=== PATIENT | female | born 1960 | race Caucasian/White ===

== ENCOUNTER 2023-08-22 16:12 | Emergency (ER) | payer OTHER ==
--- OUTSIDE RECORDS SUMMARY | 2023-08-22 16:17 | XMS REPORT | Continuity of Care Document ---
:1960 Author Organization [facility] t Address [address] [place] [address] [place] [id number] Care Team Providers Name Role Phone Pcp, Patient Does Not Have A Primary Care Physician [phone] Kwadwo Watkins Attending Clinician Unavailable Pcp, Patient Does Not Have A Attending Clinician [phone] Luigi Watkins Attending Clinician Unavailable ASHISH SHAFFER Attending Clinician Unavailable CLARISA KERN Attending Clinician Unavailable CLARISA KERN Attending Clinician [phone] ALVARO BRITO M.D. Attending Clinician Unavailable Luigi Watkins Admitting Clinician Unavailable ASHISH SHAFFER Admitting Clinician Unavailable Payers Payer Name Policy Type Policy Number Effective Date Expiration Date Pradeep Seymour [id number] 2021 Common HEALTHCARE 00:00:00 [place] [address] [id number] Common [employer] [facility] Problems Condition Condition Condition Status Onset Resolution Last Treating Co mments Source Name Details Category Date Date Treatment Clinician Date History of History of Problem Resolve [facility] Asthma Asthma d Physici ans History of History of Problem Resolve UT Mass Mass d Physici ans History of History of Problem Resolve [facility] Thyroid Thyroid d Physici disease disease ans Wrist Wrist Problem Active [facility] pain, pain, Physici chronic, chronic, ans right right Chronic Chronic Problem Active [facility] pain of pain of Physici left knee left knee ans Right Right Problem Active [facility] wrist wrist Physici tendonitis tendonitis an s History of History of Problem Resolve UT blood blood d Physici clots clots ans Abnormal Other Problem Common mammogram abnormal Spiri t and - CHI inconclusi [facility] findings [facility] diagnostic imaging of breast [id number] Primary Problem Comm on osteoarthr Spirit itis of [facility] right knee [facility] [id number] Primary Problem Comm on osteoarthr Spirit itis of CHI left knee [facility] Hysterecto Absence of Problem C ommon my both Spirit cervix and - CHI uterus, [facility] [id number] Mixed Problem Common hyperlipid Spirit emia [facility] [id number] Hypothyroi Problem Co mmon dism Spirit (acquired) [facility] [id number] Postsurgic Problem Co mmon al Spirit menopause [facility] [id number] Thyroid Problem Commo n nodule [facility] No known No known Disease Unive rs active active ity of problems problems [facility] Allergies, Adverse Reactions, Alerts Allergy Allergy Status Severity Reaction(s) Onset Inactive Treating Comm ents Source Name Type Date Date Clinician Codeine Propensi Active Unknown - Univ ers ty to See comments 07-11 ity of adverse 00:00: [place] reaction 00 Medical s Branch CITRUS DRUG Active Unknown-Cmnt Univ ers FLAVOR INGREDI 07-11 ity of 00:: Medical Branch CODEINE DRUG Active Unknown-Cmnt Uni vers INGREDI 07-11 ity of 00:00: Medical Branch [place] Propensi Active Unknown - Unive rs Flavor ty to See comments 07-11 ity of adverse 00:00: [place] reaction [facility] No Known DA Active U [facility] Contrast 06-27 [place] Allergie 00:00: d s 00 [facility] No Known DA Active U 2006- [facility] Other - [place] Allergie 00:00: d s 00 [facility] CITRUS DA Active U GI UPSET 2006- [facility] FRUITS 06-27 [place] 00:00: d 00 [facility] CODEINE DA Active U SEVERE [facility] HEADACHE, 06-27 [place] IRRITABILITY 00:00: d 00 [facility] codeine DA Active U 2006- [facility] 3-06 [place] 00:00: d 00 [facility] codeine codeine Active Unknown [facility] - [facility] Other Allergy Active UT to Physici substanc ans e (finding ) Family History Family Member Diagnosis Comments Start Date Stop Date Source Father Family history of Diabetes [facility] Father Family history of Heart [facility] Physicians disease Father Family history of High [facility] blood pressure Social History Social Habit Start Date Stop Date Quantity Comments Source Sexual orientation Univer [facility] Medical Branch History of Tobacco Common [facility] - [facility] Use [facility] Sex Assigned At Com mon Spirit - CHI [facility] Exposure to 2022-07-01 2022-07-11 Not sure [facility] SARS-CoV-2 (event) 00:00:00 15:06:00 Medica l Branch Smoking Status Start Date Stop Date Source Tobacco smoking consumption Univ [facility] unknown Branch Never Smoker [facility] Medications Ordered Filled Start Stop Current Ordering Indication Dosage Frequency Signature Comments Components Source Medication Medication Date Date Medication? Clinician (SIG) Name Name Ofloxacin Ofloxacin No 10{drop QD Ofloxacin 0.3 % 0.3 % 06 s_into_ 0.3 % 00:00: affecte 00 d_ear} Ventolin Ventolin No 1{puff_ 6xD Ventolin HFA 108 (90 HFA 108 (90 5- as_need HFA 108 Base) Base) 00:00: ed} (90 Base) MCG/ACT MCG/ACT 00 MCG/ACT Macrobid Macrobid No 1{capsu BID Macrobid 100 MG 100 MG 02-20 le_with 100 MG 00:00: _food} 00 Bupivicaine Bupivicaine 2021-10 No 2.5mg Common [place] 2-13 Spirit 00:00: - [facility] Bupivicaine Bupivicaine 2021-10 No 2.5mg Common [place] 2-13 Spirit 00:00: - CHI 00 [facility] Durolane Durolane 2021-10 No 60mg Commo n 2-13 Spirit 00:00: - CHI 00 [facility] Durolane Durolane 2021-10 No 60mg Commo n 2-13 Spirit 00:00: - CHI 00 [facility] Bupivicaine Bupivicaine 2021-10 No 2.5mg Common [place] 2-13 Spirit 00:00: - CHI 00 [facility] Bupivicaine Bupivicaine 2021-10 No 2.5mg Common [place] 2-13 Spirit 00:00: - CHI 00 [facility] Durolane Durolane 2021-10 No 60mg Commo n 2-13 Spirit 00:00: - CHI 00 [facility] Durolane Durolane 2021-10 No 60mg Commo n 2-13 Spirit 00:00: - CHI 00 [facility] Bupivicaine Bupivicaine 2021-10 No 2.5mg Common [place] 2-13 Spirit 00:00: - CHI 00 [facility] Bupivicaine Bupivicaine 2021-10 No 2.5mg Common [place] 2-13 Spirit 00:00: - CHI 00 [facility] Durolane Durolane 2021-10 No 60mg Commo n 2-13 Spirit 00:00: - CHI 00 [facility] Durolane Durolane 2021-10 No 60mg Commo n 2-13 Spirit 00:00: - CHI 00 [facility] Bupivicaine Bupivicaine 2021-10 No 2.5mg Common [place] 2-13 Spirit 00:00: - CHI 00 [facility] Bupivicaine Bupivicaine 2021-10 No 2.5mg Common [place] 2-13 Spirit 00:00: - CHI 00 [facility] Durolane Durolane 2021-10 No 60mg Commo n 2-13 Spirit 00:00: - CHI 00 [facility] Durolane Durolane 2021-10 No 60mg Commo n 2-13 Spirit 00:00: - CHI 00 [facility] NaCl 0.9% 2021- No 1000mL at 999 Uni vers (NS) bolus 07-11 09-19 mL/hr, ity of infusion 21:00: 22:09 1,000 mL, Jose as 1,000 mL 00 :00 IV Medical Infusion, Branch ONCE, 1 dose, On 07/11/22 at 1600, STALIN nirmatrelvi 2021-0 Yes [id number] 3{tbl} Take 3 Univers r-ritonavir 9-19 tablets by it y of (PAXLOVID, 00:00: mouth in [place] as EUA,) 300 00 the Medical mg (150 mg morning Branch x 2)-100 mg and 3 tablet tablets in the evening. nirmatrelvi 2021-0 Yes [id number] 3{tbl} Take 3 Univers r-ritonavir 9-19 tablets by it y of (PAXLOVID, 00:00: mouth in [place] as EUA,) 300 00 the Medical mg (150 mg morning Branch x 2)-100 mg and 3 tablet tablets in the evening. Bupivicaine Bupivicaine 2021-0 No 5mg Common [place] 8-22 Spirit 00:00: - [facility] Bupivicaine Bupivicaine 2021-0 No 5mg Common [place] 8-22 Spirit 00:00: - [facility] Kenalog Kenalog 2021-0 No 40mg Common (Triamcinol (Triamcinol 8-22 S pirit one) one) 00:00: - CHI [facility] Kenalog Kenalog 2021-0 No 40mg Common (Triamcinol (Triamcinol 8-22 S pirit one) one) 00:00: - [facility] Bupivicaine Bupivicaine 2-0 No 5mg Common [place] 8-22 Spirit 00:00: - [facility] Bupivicaine Bupivicaine 2-0 No 5mg Common [place] 8-22 Spirit 00:00: - [facility] Kenalog Kenalog 2021-0 No 40mg Common (Triamcinol (Triamcinol 8-22 S pirit one) one) 00:00: - CH[facility] Kenalog Kenalog 2-0 No 40mg Common (Triamcinol (Triamcinol 8-22 S pirit one) one) 00:00: - CHI 00 [facility] Bupivicaine Bupivicaine 2-0 No 5mg Common [place] 8-22 Spirit 00:00: - CHI 00 [facility] Bupivicaine Bupivicaine 2-0 No 5mg Common [place] 8-22 Spirit 00:00: - CHI 00 [facility] Kenalog Kenalog 2-0 No 40mg Common (Triamcinol (Triamcinol 8-22 S pirit one) one) 00:00: - CHI 00 [facility] Kenalog Kenalog 2021-0 No 40mg Common (Triamcinol (Triamcinol 8-22 S pirit one) one) 00:00: - CHI 00 [facility] Bupivicaine Bupivicaine 2-0 No 5mg Common [place] 8-22 Spirit 00:00: - CHI 00 [facility] Bupivicaine Bupivicaine 2-0 No 5mg Common [place] 8-22 Spirit 00:00: - CHI 00 [facility] Kenalog Kenalog 2-0 No 40mg Common (Triamcinol (Triamcinol 8-22 S pirit one) one) 00:00: - CHI 00 [facility] Kenalog Kenalog 2-0 No 40mg Common (Triamcinol (Triamcinol 8-22 S pirit one) one) 00:00: - CHI 00 [facility] Bupivicaine Bupivicaine 2-0 No 5mg Common [place] 8-22 Spirit 00:00: - CHI 00 [facility] Bupivicaine Bupivicaine 2-0 No 5mg Common [place] 8-22 Spirit 00:00: - CHI 00 [facility] Kenalog Kenalog 2-0 No 40mg Common (Triamcinol (Triamcinol 8-22 S pirit one) one) 00:00: - CHI 00 [facility] Kenalog Kenalog 2-0 No 40mg Common (Triamcinol (Triamcinol 8-22 S pirit one) one) 00:00: - CHI 00 [facility] Bupivicaine Bupivicaine 2-0 No 5mg Common [place] 8-22 Spirit 00:00: - CHI 00 [facility] Bupivicaine Bupivicaine 2-0 No 5mg Common [place] 8-22 Spirit 00:00: - CHI 00 [facility] Kenalog Kenalog 2-0 No 40mg Common (Triamcinol (Triamcinol 8-22 S pirit one) one) 00:00: - CHI 00 [facility] Kenalog Kenalog 2-0 No 40mg Common (Triamcinol (Triamcinol 8-22 S pirit one) one) 00:00: - CHI 00 [facility] Bupivicaine Bupivicaine 2-0 No 5mg Common [place] 8-22 Spirit 00:00: - CHI 00 [facility] Bupivicaine Bupivicaine 2-0 No 5mg Common [place] 8-22 Spirit 00:00: - CHI 00 [facility] Kenalog Kenalog 2-0 No 40mg Common (Triamcinol (Triamcinol 8-22 S pirit one) one) 00:00: - CHI 00 [facility] Kenalog Kenalog 2-0 No 40mg Common (Triamcinol (Triamcinol 8-22 S pirit one) one) 00:00: - CHI 00 [facility] Bupivicaine Bupivicaine 2-0 No 5mg Common [place] 8-22 Spirit 00:00: - CHI 00 [facility] Bupivicaine Bupivicaine 2-0 No 5mg Common [place] 8-22 Spirit 00:00: - CHI 00 [facility] Kenalog Kenalog 2-0 No 40mg Common (Triamcinol (Triamcinol 8-22 S pirit one) one) 00:00: - CHI 00 [facility] Kenalog Kenalog 2-0 No 40mg Common (Triamcinol (Triamcinol 8-22 S pirit one) one) 00:00: - CHI 00 [facility] Bupivicaine Bupivicaine 2-0 No 5mg Common [place] 8-22 Spirit 00:00: - CHI 00 [facility] Bupivicaine Bupivicaine 2-0 No 5mg Common [place] 8-22 Spirit 00:00: - CHI 00 [facility] Kenalog Kenalog 2-0 No 40mg Common (Triamcinol (Triamcinol 8-22 S pirit one) one) 00:00: - CHI 00 [facility] Kenalog Kenalog 2-0 No 40mg Common (Triamcinol (Triamcinol 8-22 S pirit one) one) 00:00: - CHI 00 [facility] Bupivicaine Bupivicaine 2-0 No 5mg Common [place] 8-22 Spirit 00:00: - CHI 00 [facility] Bupivicaine Bupivicaine 2-0 No 5mg Common [place] 8-22 Spirit 00:00: - CHI 00 [facility] Kenalog Kenalog 2-0 No 40mg Common (Triamcinol (Triamcinol 8-22 S pirit one) one) 00:00: - CHI 00 [facility] Kenalog Kenalog 2-0 No 40mg Common (Triamcinol (Triamcinol 8-22 S pirit one) one) 00:00: - CHI 00 [facility] Bupivicaine Bupivicaine 2-0 No 5mg Common [place] 8-22 Spirit 00:00: - CHI 00 [facility] Bupivicaine Bupivicaine 2-0 No 5mg Common [place] 8-22 Spirit 00:00: - CHI 00 [facility] Kenalog Kenalog 2-0 No 40mg Common (Triamcinol (Triamcinol 8-22 S pirit one) one) 00:00: - CHI 00 [facility] Kenalog Kenalog 2-0 No 40mg Common (Triamcinol (Triamcinol 8-22 S pirit one) one) 00:00: - CHI 00 [facility] Bupivicaine Bupivicaine 2-0 No 5mg Common [place] 8-22 Spirit 00:00: - CHI 00 [facility] Bupivicaine Bupivicaine 2-0 No 5mg Common [place] 8-22 Spirit 00:00: - CHI 00 [facility] Kenalog Kenalog 2021-0 No 40mg Common (Triamcinol (Triamcinol 8-22 S pirit one) one) 00:00: - CHI 00 [facility] Kenalog Kenalog 2021-0 No 40mg Common (Triamcinol (Triamcinol 8-22 S pirit one) one) 00:00: - CHI 00 [facility] Bupivicaine Bupivicaine 2-0 No 5mg Common [place] 8-22 Spirit 00:00: - CHI 00 [facility] Bupivicaine Bupivicaine 2-0 No 5mg Common [place] 8-22 Spirit 00:00: - CHI 00 [facility] Kenalog Kenalog 2021-0 No 40mg Common (Triamcinol (Triamcinol 8-22 S pirit one) one) 00:00: - CHI 00 [facility] Kenalog Kenalog 2021-0 No 40mg Common (Triamcinol (Triamcinol 8-22 S pirit one) one) 00:00: - CHI 00 [facility] Liothyronin Liothyronin 2021-0 No 1{table QD Liothyroni e Sodium 5 e Sodium 5 2-16 t_on_an ne Sodium MCG MCG 00:00: _empty_ 5 MCG 00 stomach } Estradiol Estradiol 2021-0 No 1{table Estradiol 0.5 MG 0.5 MG 2-16 t} 0.5 MG 00:00: 00 Tirosint Tirosint 2021-0 No QD Tirosint 175 MCG 175 MCG 2-16 175 MCG 00:00: 00 Liothyronin Liothyronin 2021-0 No 1{table QD Liothyroni e Sodium 5 e Sodium 5 2-16 t_on_an ne Sodium MCG MCG 00:00: _empty_ 5 MCG 00 stomach } Estradiol Estradiol 2021-0 No 1{table Estradiol 0.5 MG 0.5 MG 2-16 t} 0.5 MG 00:00: 00 Tirosint Tirosint 2021-0 No QD Tirosint 175 MCG 175 MCG 2-16 175 MCG 00:00: 00 Liothyronin Liothyronin 2021-0 No 1{table QD Liothyroni e Sodium 5 e Sodium 5 2-16 t_on_an ne Sodium MCG MCG 00:00: _empty_ 5 MCG 00 stomach } Estradiol Estradiol 2021-0 No 1{table Estradiol 0.5 MG 0.5 MG 2-16 t} 0.5 MG 00:00: 00 Tirosint Tirosint 2021-0 No QD Tirosint 175 MCG 175 MCG 2-16 175 MCG 00:00: 00 Estradiol Estradiol 2021-0 No 1{table Estradiol 0.5 MG 0.5 MG 2-16 t} 0.5 MG 00:00: 00 Liothyronin Liothyronin 2021-0 No 1{table QD Liothyroni e Sodium 5 e Sodium 5 2-16 t_on_an ne Sodium MCG MCG 00:00: _empty_ 5 MCG 00 stomach } Tirosint Tirosint No QD Tirosint 175 MCG 175 MCG 2-16 175 MCG 00:00: 00 Estradiol Estradiol 2021-0 No 1{table Estradiol 0.5 MG 0.5 MG 2-16 t} 0.5 MG 00:00: 00 Liothyronin Liothyronin 2021-0 No 1{table QD Liothyroni e Sodium 5 e Sodium 5 2-16 t_on_an ne Sodium MCG MCG 00:00: _empty_ 5 MCG 00 stomach } Tirosint Tirosint 0 No QD Tirosint 175 MCG 175 MCG 2-16 175 MCG 00:00: 00 Estradiol Estradiol 2021-0 No 1{table Estradiol 0.5 MG 0.5 MG 2-16 t} 0.5 MG 00:00: 00 Liothyronin Liothyronin 2021-0 No 1{table QD Liothyroni e Sodium 5 e Sodium 5 2-16 t_on_an ne Sodium MCG MCG 00:00: _empty_ 5 MCG 00 stomach } Tirosint Tirosint 2021-0 No QD Tirosint 175 MCG 175 MCG 2-16 175 MCG 00:00: 00 Liothyronin Liothyronin 2021-0 No 1{table QD Liothyroni e Sodium 5 e Sodium 5 2-16 t_on_an ne Sodium MCG MCG 00:00: _empty_ 5 MCG 00 stomach } Tirosint Tirosint 2021-0 No QD Tirosint 175 MCG 175 MCG 2-16 175 MCG 00:00: 00 Estradiol Estradiol No 1{table Estradiol 0.5 MG 0.5 MG 2-16 t} 0.5 MG 00:00: 00 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 No 1{table QD 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 60 MG 60 MG 1-30 t_on_an 60 MG 00:00: _empty_ 00 stomach } Estradiol Estradiol No Estradiol 0.1 MG/24HR 0.1 MG/24HR 0.1 MG/24HR Levothyroxi Levothyroxi No Levothyrox ne Sodium ne Sodium ine Sodium 175 MCG 175 MCG 175 MCG Albuterol Albuterol No Albuterol Sulfate HFA Sulfate HFA Sulfate 108 (90 108 (90 HFA 108 Base) Base) (90 Base) MCG/ACT MCG/ACT MCG/ACT Estradiol Estradiol No Estradiol 0.1 MG/24HR 0.1 MG/24HR 0.1 MG/24HR Levothyroxi Levothyroxi No Levothyrox ne Sodium ne Sodium ine Sodium 175 MCG 175 MCG 175 MCG Albuterol Albuterol No Albuterol Sulfate HFA Sulfate HFA Sulfate 108 (90 108 (90 HFA 108 Base) Base) (90 Base) MCG/ACT MCG/ACT MCG/ACT Estradiol Estradiol No Estradiol 0.1 MG/24HR 0.1 MG/24HR 0.1 MG/24HR Levothyroxi Levothyroxi No Levothyrox ne Sodium ne Sodium ine Sodium 175 MCG 175 MCG 175 MCG Albuterol Albuterol No Albuterol Sulfate HFA Sulfate HFA Sulfate 108 (90 108 (90 HFA 108 Base) Base) (90 Base) MCG/ACT MCG/ACT MCG/ACT Levothyroxi Levothyroxi No Levothyrox ne Sodium ne Sodium ine Sodium 175 MCG 175 MCG 175 MCG Estradiol Estradiol No Estradiol 0.1 MG/24HR 0.1 MG/24HR 0.1 MG/24HR Albuterol Albuterol No Albuterol Sulfate HFA Sulfate HFA Sulfate 108 (90 108 (90 HFA 108 Base) Base) (90 Base) MCG/ACT MCG/ACT MCG/ACT Levothyroxi Levothyroxi No Levothyrox ne Sodium ne Sodium ine Sodium 175 MCG 175 MCG 175 MCG Estradiol Estradiol No Estradiol 0.1 MG/24HR 0.1 MG/24HR 0.1 MG/24HR Albuterol Albuterol No Albuterol Sulfate HFA Sulfate HFA Sulfate 108 (90 108 (90 HFA 108 Base) Base) (90 Base) MCG/ACT MCG/ACT MCG/ACT Levothyroxi Levothyroxi No Levothyrox ne Sodium ne Sodium ine Sodium 175 MCG 175 MCG 175 MCG Estradiol Estradiol No Estradiol 0.1 MG/24HR 0.1 MG/24HR 0.1 MG/24HR Albuterol Albuterol No Albuterol Sulfate HFA Sulfate HFA Sulfate 108 (90 108 (90 HFA 108 Base) Base) (90 Base) MCG/ACT MCG/ACT MCG/ACT Estradiol Estradiol No Estradiol 0.1 MG/24HR 0.1 MG/24HR 0.1 MG/24HR Estradiol Estradiol No 1{table Estradiol 0.5 MG 0.5 MG t} 0.5 MG Liothyronin Liothyronin No 1{table QD Liothyroni e Sodium 5 e Sodium 5 t_on_an ne Sodium MCG MCG _empty_ 5 MCG stomach } Liothyronin Liothyronin No 1{table QD Liothyroni e Sodium 5 e Sodium 5 t_on_an ne Sodium MCG MCG _empty_ 5 MCG stomach } Levothyroxi Levothyroxi No QD Levothyrox ne Sodium ne Sodium ine Sodium 125 MCG 125 MCG 125 MCG Albuterol Albuterol No Albuterol Sulfate HFA Sulfate HFA Sulfate 108 (90 108 (90 HFA 108 Base) Base) (90 Base) MCG/ACT MCG/ACT MCG/ACT Tirosint Tirosint No QD Tirosint 175 MCG 175 MCG 175 MCG Levothyroxi Levothyroxi No QD Levothyrox ne Sodium ne Sodium ine Sodium 100 MCG 100 MCG 100 MCG Estradiol Estradiol No 1{table Estradiol 0.5 MG 0.5 MG t} 0.5 MG Albuterol Albuterol No Albuterol Sulfate HFA Sulfate HFA Sulfate 108 (90 108 (90 HFA 108 Base) Base) (90 Base) MCG/ACT MCG/ACT MCG/ACT Liothyronin Liothyronin No 1{table QD Liothyroni e Sodium 5 e Sodium 5 t_on_an ne Sodium MCG MCG _empty_ 5 MCG stomach } Albuterol Albuterol No Albuterol Sulfate HFA Sulfate HFA Sulfate 108 (90 108 (90 HFA 108 Base) Base) (90 Base) MCG/ACT MCG/ACT MCG/ACT Levothyroxi Levothyroxi No QD Levothyrox ne Sodium ne Sodium ine Sodium 100 MCG 100 MCG 100 MCG Estradiol Estradiol No Estradiol 0.5 MG 0.5 MG 0.5 MG Liothyronin Liothyronin No 1{table QD Liothyroni e Sodium 5 e Sodium 5 t_on_an ne Sodium MCG MCG _empty_ 5 MCG stomach } Levothyroxi Levothyroxi No QD Levothyrox ne Sodium ne Sodium ine Sodium 100 MCG 100 MCG 100 MCG Albuterol Albuterol No Albuterol Sulfate HFA Sulfate HFA Sulfate 108 (90 108 (90 HFA 108 Base) Base) (90 Base) MCG/ACT MCG/ACT MCG/ACT Liothyronin Liothyronin No 1{table QD Liothyroni e Sodium 5 e Sodium 5 t_on_an ne Sodium MCG MCG _empty_ 5 MCG stomach } Estradiol Estradiol No Estradiol 0.5 MG 0.5 MG 0.5 MG Levothyroxi Levothyroxi No QD Levothyrox ne Sodium ne Sodium ine Sodium 100 MCG 100 MCG 100 MCG Albuterol Albuterol No Albuterol Sulfate HFA Sulfate HFA Sulfate 108 (90 108 (90 HFA 108 Base) Base) (90 Base) MCG/ACT MCG/ACT MCG/ACT Liothyronin Liothyronin No 1{table QD Liothyroni e Sodium 5 e Sodium 5 t_on_an ne Sodium MCG MCG _empty_ 5 MCG stomach } Estradiol Estradiol No Estradiol 0.5 MG 0.5 MG 0.5 MG Levothyroxi Levothyroxi No QD Levothyrox ne Sodium ne Sodium ine Sodium 100 MCG 100 MCG 100 MCG Albuterol Albuterol No Albuterol Sulfate HFA Sulfate HFA Sulfate 108 (90 108 (90 HFA 108 Base) Base) (90 Base) MCG/ACT MCG/ACT MCG/ACT Liothyronin Liothyronin No 1{table QD Liothyroni e Sodium 5 e Sodium 5 t_on_an ne Sodium MCG MCG _empty_ 5 MCG stomach } Estradiol Estradiol No Estradiol 0.5 MG 0.5 MG 0.5 MG Estradiol Estradiol No 1{table Estradiol 0.5 MG 0.5 MG t} 0.5 MG Estradiol Estradiol No Estradiol 0.5 MG 0.5 MG 0.5 MG Albuterol Albuterol No Albuterol Sulfate HFA Sulfate HFA Sulfate 108 (90 108 (90 HFA 108 Base) Base) (90 Base) MCG/ACT MCG/ACT MCG/ACT Levothyroxi Levothyroxi No QD Levothyrox ne Sodium ne Sodium ine Sodium 100 MCG 100 MCG 100 MCG Liothyronin Liothyronin No 1{table QD Liothyroni e Sodium 5 e Sodium 5 t_on_an ne Sodium MCG MCG _empty_ 5 MCG stomach } Albuterol Albuterol No Albuterol Sulfate HFA Sulfate HFA Sulfate 108 (90 108 (90 HFA 108 Base) Base) (90 Base) MCG/ACT MCG/ACT MCG/ACT Estradiol Estradiol No Estradiol 0.5 MG 0.5 MG 0.5 MG Estradiol Estradiol No 1{table Estradiol 0.5 MG 0.5 MG t} 0.5 MG Levothyroxi Levothyroxi No QD Levothyrox ne Sodium ne Sodium ine Sodium 100 MCG 100 MCG 100 MCG Liothyronin Liothyronin No Liothyroni e Sodium 5 e Sodium 5 ne Sodium MCG MCG 5 MCG Estradiol Estradiol No 1{table Estradiol 0.5 MG 0.5 MG t} 0.5 MG Estradiol Estradiol No Estradiol 0.5 MG 0.5 MG 0.5 MG Liothyronin Liothyronin No 1{table QD Liothyroni e Sodium 5 e Sodium 5 t_on_an ne Sodium MCG MCG _empty_ 5 MCG stomach } Levothyroxi Levothyroxi No QD Levothyrox ne Sodium ne Sodium ine Sodium 112 MCG 112 MCG 112 MCG Liothyronin Liothyronin No Liothyroni e Sodium 5 e Sodium 5 ne Sodium MCG MCG 5 MCG Albuterol Albuterol No Albuterol Sulfate HFA Sulfate HFA Sulfate 108 (90 108 (90 HFA 108 Base) Base) (90 Base) MCG/ACT MCG/ACT MCG/ACT Estradiol Estradiol No 1{table Estradiol 0.5 MG 0.5 MG t} 0.5 MG Estradiol Estradiol No Estradiol 0.5 MG 0.5 MG 0.5 MG Liothyronin Liothyronin No 1{table QD Liothyroni e Sodium 5 e Sodium 5 t_on_an ne Sodium MCG MCG _empty_ 5 MCG stomach } Levothyroxi Levothyroxi No QD Levothyrox ne Sodium ne Sodium ine Sodium 112 MCG 112 MCG 112 MCG Liothyronin Liothyronin No Liothyroni e Sodium 5 e Sodium 5 ne Sodium MCG MCG 5 MCG Albuterol Albuterol No Albuterol Sulfate HFA Sulfate HFA Sulfate 108 (90 108 (90 HFA 108 Base) Base) (90 Base) MCG/ACT MCG/ACT MCG/ACT Estradiol Estradiol No 1{table Estradiol 0.5 MG 0.5 MG t} 0.5 MG Estradiol Estradiol No Estradiol 0.5 MG 0.5 MG 0.5 MG Liothyronin Liothyronin No 1{table QD Liothyroni e Sodium 5 e Sodium 5 t_on_an ne Sodium MCG MCG _empty_ 5 MCG stomach } Levothyroxi Levothyroxi No QD Levothyrox ne Sodium ne Sodium ine Sodium 112 MCG 112 MCG 112 MCG Liothyronin Liothyronin No Liothyroni e Sodium 5 e Sodium 5 ne Sodium MCG MCG 5 MCG Albuterol Albuterol No Albuterol Sulfate HFA Sulfate HFA Sulfate 108 (90 108 (90 HFA 108 Base) Base) (90 Base) MCG/ACT MCG/ACT MCG/ACT Estradiol Estradiol No 1{table Estradiol 0.5 MG 0.5 MG t} 0.5 MG Estradiol Estradiol No Estradiol 0.5 MG 0.5 MG 0.5 MG Liothyronin Liothyronin No 1{table QD Liothyroni e Sodium 5 e Sodium 5 t_on_an ne Sodium MCG MCG _empty_ 5 MCG stomach } Levothyroxi Levothyroxi No QD Levothyrox ne Sodium ne Sodium ine Sodium 112 MCG 112 MCG 112 MCG Liothyronin Liothyronin No Liothyroni e Sodium 5 e Sodium 5 ne Sodium MCG MCG 5 MCG Albuterol Albuterol No Albuterol Sulfate HFA Sulfate HFA Sulfate 108 (90 108 (90 HFA 108 Base) Base) (90 Base) MCG/ACT MCG/ACT MCG/ACT Albuterol Albuterol No Albuterol Sulfate HFA Sulfate HFA Sulfate 108 (90 108 (90 HFA 108 Base) Base) (90 Base) MCG/ACT MCG/ACT MCG/ACT Liothyronin Liothyronin No 1{table QD Liothyroni e Sodium 5 e Sodium 5 t_on_an ne Sodium MCG MCG _empty_ 5 MCG stomach } Estradiol Estradiol No 1{table Estradiol 0.5 MG 0.5 MG t} 0.5 MG Liothyronin Liothyronin No Liothyroni e Sodium 5 e Sodium 5 ne Sodium MCG MCG 5 MCG Estradiol Estradiol No Estradiol 0.5 MG 0.5 MG 0.5 MG Levothyroxi Levothyroxi No QD Levothyrox ne Sodium ne Sodium ine Sodium 112 MCG 112 MCG 112 MCG Estradiol Estradiol No 1{table Estradiol 0.5 MG 0.5 MG t} 0.5 MG Albuterol Albuterol No Albuterol Sulfate HFA Sulfate HFA Sulfate 108 (90 108 (90 HFA 108 Base) Base) (90 Base) MCG/ACT MCG/ACT MCG/ACT Liothyronin Liothyronin No Liothyroni e Sodium 5 e Sodium 5 ne Sodium MCG MCG 5 MCG Liothyronin Liothyronin No 1{table QD Liothyroni e Sodium 5 e Sodium 5 t_on_an ne Sodium MCG MCG _empty_ 5 MCG stomach } Levothyroxi Levothyroxi No QD Levothyrox ne Sodium ne Sodium ine Sodium 112 MCG 112 MCG 112 MCG Estradiol Estradiol No Estradiol 0.5 MG 0.5 MG 0.5 MG Estradiol Estradiol No 1{table Estradiol 0.5 MG 0.5 MG t} 0.5 MG Albuterol Albuterol No Albuterol Sulfate HFA Sulfate HFA Sulfate 108 (90 108 (90 HFA 108 Base) Base) (90 Base) MCG/ACT MCG/ACT MCG/ACT Liothyronin Liothyronin No Liothyroni e Sodium 5 e Sodium 5 ne Sodium MCG MCG 5 MCG Liothyronin Liothyronin No 1{table QD Liothyroni e Sodium 5 e Sodium 5 t_on_an ne Sodium MCG MCG _empty_ 5 MCG stomach } Levothyroxi Levothyroxi No QD Levothyrox ne Sodium ne Sodium ine Sodium 112 MCG 112 MCG 112 MCG Estradiol Estradiol No Estradiol 0.5 MG 0.5 MG 0.5 MG Liothyronin Liothyronin No Liothyroni e Sodium 5 e Sodium 5 ne Sodium MCG MCG 5 MCG Estradiol Estradiol No 1{table Estradiol 0.5 MG 0.5 MG t} 0.5 MG Liothyronin Liothyronin No 1{table QD Liothyroni e Sodium 5 e Sodium 5 t_on_an ne Sodium MCG MCG _empty_ 5 MCG stomach } Levothyroxi Levothyroxi No QD Levothyrox ne Sodium ne Sodium ine Sodium 112 MCG 112 MCG 112 MCG Estradiol Estradiol No Estradiol 0.5 MG 0.5 MG 0.5 MG Albuterol Albuterol No Albuterol Sulfate HFA Sulfate HFA Sulfate 108 (90 108 (90 HFA 108 Base) Base) (90 Base) MCG/ACT MCG/ACT MCG/ACT Estradiol Estradiol No Estradiol 0.1 MG/24HR 0.1 MG/24HR 0.1 MG/24HR Albuterol Albuterol No Albuterol Sulfate HFA Sulfate HFA Sulfate 108 (90 108 (90 HFA 108 Base) Base) (90 Base) MCG/ACT MCG/ACT MCG/ACT Albuterol Albuterol No Albuterol Sulfate HFA Sulfate HFA Sulfate 108 (90 108 (90 HFA 108 Base) Base) (90 Base) MCG/ACT MCG/ACT MCG/ACT 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 No 2{table QD 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 60 MG 60 MG t_on_an 60 MG _empty_ stomach } Estradiol Estradiol No Estradiol 0.1 MG/24HR 0.1 MG/24HR 0.1 MG/24HR Albuterol Albuterol No Albuterol Sulfate HFA Sulfate HFA Sulfate 108 (90 108 (90 HFA 108 Base) Base) (90 Base) MCG/ACT MCG/ACT MCG/ACT Thyroid Thyroid Yes [facility] 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 No 1{table QD 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 120 MG 120 MG t_on_an 120 MG _empty_ stomach } Estradiol Estradiol No Estradiol 0.1 MG/24HR 0.1 MG/24HR 0.1 MG/24HR Estradiol Estradiol No Estradiol 0.1 MG/24HR 0.1 MG/24HR 0.1 MG/24HR Albuterol Albuterol No Albuterol Sulfate HFA Sulfate HFA Sulfate 108 (90 108 (90 HFA 108 Base) Base) (90 Base) MCG/ACT MCG/ACT MCG/ACT Vital Signs Vital Name Observation Time Observation Value Comments Source height 2022-11-16 11:30:00 67 [in_i] [facility] weight 2022-11-16 11:30:00 177 [lb_av] [facility] temperature 2022-11-16 11:30:00 97.2 [degF] [facility] bmi 2022-11-16 11:30:00 27.72 kg/m2 Common S pirit [facility] oximetry 2022-11-16 11:30:00 95 % Common S pirit [facility] respiratory rate 2022-11-16 11:30:00 16 /min Comm on [facility] blood pressure 2022-11-16 11:30:00 130 mm[Hg] [facility] - systolic [facility] blood pressure 2022-11-16 11:30:00 80 mm[Hg] [facility] - diastolic [facility] height 2022-10-04 15:30:00 67 [in_i] Common [facility] weight 2022-10-04 15:30:00 178.1 [lb_av] [facility] temperature 2022-10-04 15:30:00 98.0 [degF] Common S pirit [facility] bmi 2022-10-04 15:30:00 27.89 kg/m2 Common S pirit [facility] blood pressure 2022-10-04 15:30:00 124 mm[Hg] [facility] - systolic [facility] blood pressure 2022-10-04 15:30:00 83 mm[Hg] Common [facility] - diastolic [facility] height 2022-08-16 08:20:00 67 [in_i] Common S pirit [facility] weight 2022-08-16 08:20:00 173.9 [lb_av] [facility] temperature 2022-08-16 08:20:00 97.2 [degF] Common S pirit [facility] bmi 2022-08-16 08:20:00 27.23 kg/m2 Common S pirit [facility] oximetry 2022-08-16 08:20:00 98 % Common S pirit [facility] respiratory rate 2022-08-16 08:20:00 18 /min Comm on [facility] blood pressure 2022-08-16 08:20:00 135 mm[Hg] [facility] - systolic [facility] blood pressure 2022-08-16 08:20:00 70 mm[Hg] [facility] - diastolic [facility] height 2022-08-11 10:00:00 67 [in_i] [facility] weight 2022-08-11 10:00:00 175 [lb_av] [facility] temperature 2022-08-11 10:00:00 97.1 [degF] Common [facility] bmi 2022-08-11 10:00:00 27.41 kg/m2 Common [facility] blood pressure 2022-08-11 10:00:00 120 mm[Hg] [facility] - systolic [facility] blood pressure 2022-08-11 10:00:00 76 mm[Hg] [facility] - diastolic [facility] Systolic blood 2022-07-11 22:15:00 129 mm[Hg] [facility] Diastolic blood 2022-07-11 22:15:00 82 mm[Hg] [facility] Heart rate 2022-07-11 22:15:00 77 /min [facility] Respiratory rate 2022-07-11 22:15:00 16 /min [facility] Oxygen saturation in 2022-07-11 22:15:00 96 /min [facility] Arterial blood by [facility] Pulse oximetry Branch Body temperature 2022-07-11 20:07:00 36.89 [facility] height 2022-07-11 20:07:00 170.2 cm [facility] Body weight 2022-07-11 20:07:00 78.019 kg [facility] BMI 2022-07-11 20:07:00 26.94 kg/m2 [facility] height 2022-06-13 15:00:00 67 [in_i] [facility] weight 2022-06-13 15:00:00 176 [lb_av] [facility] temperature 2022-06-13 15:00:00 97.3 [degF] Common S pirit - [facility] bmi 2022-06-13 15:00:00 27.56 kg/m2 Common S pirit - [facility] blood pressure 2022-06-13 15:00:00 137 mm[Hg] [facility] - systolic [facility] blood pressure 2022-06-13 15:00:00 90 mm[Hg] [facility] - diastolic [facility] height 2022-05-10 15:20:00 67 [in_i] Common S pirit [facility] weight 2022-05-10 15:20:00 176 [facility] temperature 2022-05-10 15:20:00 97.6 [degF] [facility] bmi 2022-05-10 15:20:00 27.56 kg/m2 [facility] oximetry 2022-05-10 15:20:00 97 % [facility] pirit [facility] respiratory rate 2022-05-10 15:20:00 16 /min Comm on Spirit - [facility] blood pressure 2022-05-10 15:20:00 129 mm[Hg] Common [facility] - systolic [facility] blood pressure 2022-05-10 15:20:00 77 mm[Hg] [facility] - diastolic [facility] height 2022-03-08 07:40:00 67 [in_i] Common S pirit [facility] weight 2022-03-08 07:40:00 175 [lb_av] Common S pirit [facility] temperature 2022-03-08 07:40:00 98 [degF] Common S pirit [facility] bmi 2022-03-08 07:40:00 27.41 kg/m2 [facility] S pirit [facility] blood pressure 2021-12-08 09:50:00 132 mm[Hg] [facility] - systolic [facility] blood pressure 2021-12-08 09:50:00 73 mm[Hg] [facility] - diastolic [facility] height 2021-12-08 09:50:00 67 [in_i] Common S pirit [facility] weight 2021-12-08 09:50:00 174.7 [lb_av] Common [facility] temperature 2021-12-08 09:50:00 97.9 [degF] Common S pirit - [facility] bmi 2021-12-08 09:50:00 27.36 kg/m2 Common S pirit - [facility] oximetry 2021-12-08 09:50:00 98 % [facility] respiratory rate 2021-12-08 09:50:00 18 /min Comm on [facility] height 2021-11-03 10:30:00 67 [in_i] Common [facility] weight 2021-11-03 10:30:00 173.5 [lb_av] [facility] temperature 2021-11-03 10:30:00 97.9 [degF] [facility] bmi 2021-11-03 10:30:00 27.17 kg/m2 Common S pirit [facility] oximetry 2021-11-03 10:30:00 97 % Common S [facility] respiratory rate 2021-11-03 10:30:00 16 /min Comm on [facility] blood pressure 2021-11-03 10:30:00 133 mm[Hg] Common [facility] - systolic [facility] blood pressure 2021-11-03 10:30:00 72 mm[Hg] Common [facility] - diastolic [facility] height 2021-09-21 11:00:00 67 [in_i] Common S [facility] weight 2021-09-21 11:00:00 170.3 [lb_av] [facility] temperature 2021-09-21 11:00:00 98.2 [degF] Common S p[facility] bmi 2021-09-21 11:00:00 26.67 kg/m2 Common S pirit - [facility] oximetry 2021-09-21 11:00:00 97 % Common S pirit - [facility] respiratory rate 2021-09-21 11:00:00 16 /min Comm on Spirit - [facility] blood pressure 2021-09-21 11:00:00 137 mm[Hg] [facility] - systolic [facility] blood pressure 2021-09-21 11:00:00 75 mm[Hg] [facility] - diastolic [facility] Procedures Procedure Date / Time Performing Clinician Source Performed EKG-12 LEAD 2022-07-11 22:23:29 Ashish Shaffer [facility] XR CHEST 1 VW 2022-07-11 20:53:11 [facility] TROPONIN I 2022-07-11 20:22:00 [facility] COMP. METABOLIC PANEL 2022-07-11 20:22:[address] [facility] ([id number]) Medical Branch CBC WITH DIFF 2022-07-11 20:22:00 Ashish Shaffer [facility] PROTHROMBIN TIME / INR 2022-07-11 20:22:00 Ashish Shaffer [facility] D-DIMER 2022-07-11 20:22:00 Ashish Shaffer [facility] ACTIVATED PARTIAL 2022-07-11 20:22:00 Edmund doug [facility] THRFormerly [facility] N-TERMINAL PRO-BNP 2022-07-11 20:22:00 Ashish Shaffer [facility] COVID-19 (ID NOW RAPID 2022-07-11 20:22:00 Ashish Shaffer [facility] TESTING) Medical Branch CONSENT/REFUSAL FOR 2022-07-11 20:02:09 [facility] DI[facility] TREAT[facility] Infectious agent 2020-08-06 00:00:00 [facility] detection by nucleic acid (DNA or History of [facility]ste[facility] Lumpectomy Encounters Start End Encounter Admission Attending Care Care Encounter Source Date/Time Date/Time Type Type Clinicians Facility Department ID 2023-08-22 Outpatient Watkins, STLMLC STLC [id number] Common 09:13:00 Kwadwo [id number] [facility] 2023-05-30 Outpatient Watkins, STLMLC STLMLC Common 09:33:00 Kwadwo [id number] [facility] 2022-08-12 Outpatient Watkins, STLMLC STLMLC [id number] Common 08:00:00 Kwadwo [facility] 2022-08-10 Outpatient Watkins, STLMLC STLC Common 10:55:03 Kwadwo [facility] 2022-08-08 Outpatient Watkins, STLMLC STLC Common 15:11:01 Kwadwo [facility] 2022-06-13 Outpatient Watkins, STLMLC STLC Common 14:53:02 Kwadwo [facility] 2022-05-24 Outpatient [facility] [id number] [place] 15:54:00 [id number] [facility] 2022-05-19 Outpatient [facility] [id number] [place] 15:12:10 [id number] [facility] 2022-03-07 Outpatient Watkins, STLMLC STLC Common 11:56:33 Kwadwo [facility] 2022-02-28 Outpatient Watkins, STLMLC STLC Common 09:18:03 Kwadwo [facility] 2021-12-08 Outpatient Watkins, STLMLC STLC Common 09:37:03 Kwadwo [facility] 2021-12-07 Outpatient Watkins, STLMLC STLC Common 13:10:02 Kwadwo [facility] 2021-11-17 Outpatient Watkins, STLMLC STLC [id number] Common 14:34:18 Kwadwo [facility] 2021-11-17 Outpatient Watkins, STLMLC STLMLC [id number] Common 14:24:11 Kwadwo [id number] [facility] 2021-11-17 Outpatient STLMLC STLMLC [id number] Common 14:18:37 [id number] [facility] 2023-03-25 2023-03-25 Patient PcpOLGA [id number] Univers 00:00:00 00:00:00 Secure Msg Patient MALGORZATA [id number] ity of [facility] [id number] [id number] Medi silvia 044 Branch 2022-11-28 2022-11-28 (TEL) STLMLC STLMLC [id number] Co mmon 00:00:00 00:00:00 [facility] 2022-11-16 2022-11-16 PREV VISIT STLMLC STLMLC [id number] Common 00:00:00 00:00:00 EST AGE [facility] 40-65 [facility] 2022-10-04 2022-10-04 (IN/ASP) STLMLC STLMLC [id number] C ommon 00:00:00 00:00:00 INJ ASP [facility] 2022-09-19 2022-09-19 (TEL) STLMLC STLMLC [id number] Co mmon 00:00:00 00:00:00 [facility] 2022-09-13 2022-09-13 (TEL) STLMLC STLMLC [id number] Co mmon 00:00:00 00:00:00 [facility] 2022-08-31 2022-08-31 Outpatient EL Roland, [facility] [id number] [facility] 12:00:00 12:00:00 [facility] 94 [facility] 2022-08-17 2022-08-17 (TEL) STLMLC STLMLC [id number] Co mmon 00:00:00 00:00:00 [facility] 2022-08-16 2022-08-16 OFFICE STLMLC STLMLC [id number] Co mmon 00:00:00 00:00:00 VISIT Spirit ESTAB PT - CHI LEVEL 4 [facility] 2022-08-11 2022-08-11 OFFICE STLMLC STLMLC [id number] Co mmon 00:00:00 00:00:00 VISIT Spirit ESTAB PT - CHI LEVEL 4 [facility] 2022-08-10 2022-08-10 (TEL) STLMLC STLMLC [id number] Co mmon 00:00:00 00:00:00 [facility] 2022-08-08 2022-08-08 Outpatient MORALES Watkins, [facility] [id number] [facility] 08:00:00 08:00:[address] 2022-07-11 2022-07-11 [facility] [id number] Univers 15:00:00 17:34:00 [facility] ity [facility] 2022-07-11 2022-07-11 Emergency [facility] [id number] Univers 15:00:00 17:34:00 [facility] [id number] it y of CLEAR 4.2.7.2.686 [facility] [id number] [address] (CLC) 2022-07-11 2022-07-11 (TEL) STLMLC STLMLC [id number] Co mmon 00:00:00 00:00:00 [facility] 2022-07-06 2022-07-06 (TEL) STLMLC STLMLC [id number] Co mmon 00:00:00 00:00:00 [facility] 2022-06-13 2022-06-13 OFFICE STLMLC STLMLC [id number] Co mmon 00:00:00 00:00:00 VISIT NEW Spir it PT LEVEL 4 - [facility] 2022-05-12 2022-05-12 (TEL) STLMLC STLMLC [id number] Co mmon 00:00:00 00:00:00 Spirit [facility] 2022-05-10 2022-05-10 OFFICE STLMLC STLMLC [id number] Co mmon 00:00:00 00:00:00 VISIT Spirit ESTAB PT - CHI LEVEL 4 [facility] 2022-03-08 2022-03-08 OFFICE STLMLC STLMLC [id number] Co mmon 00:00:00 00:00:00 VISIT [facility] PT - CHI LEVEL 4 [facility] 2022-02-11 2022-02-11 (TEL) STLMLC STLMLC [id number] Co mmon 00:00:00 00:00:00 [facility] 2022-02-09 2022-02-09 Outpatient EL Watkins, HCAPM LIANG [id number] [facility] 12:00:00 12:00:00 [facility] 43 [facility] 2022-01-27 2022-01-27 (TEL) STLMLC STLMLC [id number] Co mmon 00:00:00 00:00:00 [facility] 2022-01-26 2022-01-26 (TEL) STLMLC STLMLC [id number] Co mmon 00:00:00 00:00:00 [facility] 2022-01-18 2022-01-18 (TEL) STLMLC STLMLC [id number] Co mmon 00:00:00 00:00:00 [facility] 2022-01-12 2022-01-12 (TEL) STLMLC STLMLC [id number] Co mmon 00:00:00 00:00:00 [facility] 2021-12-29 2021-12-29 Outpatient MORALES Watkins, PIO ORANTES [id number] [facility] 15:28:00 15:28:00 [facility] 78 [facility] 2021-12-16 2021-12-16 (TEL) STLMLC STLMLC [id number] Co mmon 00:00:00 00:00:00 [facility] 2021-12-13 2021-12-13 (TEL) STLMLC STLMLC [id number] Co mmon 00:00:00 00:00:00 [facility] 2021-12-08 2021-12-08 OFFICE STLMLC STLMLC [id number] Co mmon 00:00:00 00:00:00 VISIT Spirit ESTAB PT - CHI LEVEL 4 [facility] 2021-11-19 2021-11-19 (TEL) STLMLC STLMLC [id number] Co mmon 00:00:00 00:00:00 Spirit - [facility] 2021-11-03 2021-11-03 OFFICE STLMLC STLMLC [id number] Co mmon 00:00:00 00:00:00 VISIT Spirit ESTAB PT - CHI LEVEL 4 [facility] 2021-09-21 2021-09-21 OFFICE STLMLC STLMLC [id number] Co mmon 00:00:00 00:00:00 VISIT NEW Spir it PT LEVEL 3 - [facility] 2020-08-06 2020-08-[address] [facility] [id number] Access 14:30:00 14:30:00 [facility] 2020-08-06 2020-08-06 [facility] [id number] Access 14:30:00 14:30:00 CLARISA [facility] 2020-08-06 2020-08-06 [facility] [id number] Access 14:30:00 14:30:00 CLARISA Fernández [id number] [facility] [id number] 2020-08-06 2020-08-06 Outpatient [facility] [id number] Access 14:30:00 14:30:00 [id number] [facility] [id number] 2016-08-29 2016-08-29 [facility] [id number] [place] 09:30:00 09:30:00 ALVARO [facility] TORRES-BAR M.D. ans ALVARO PA M.D. Results Test Description Test Time Test Comments Results Result Comments Source SURGICAL OUTREACH 2022-09-05 16:57:00 Test Item Value Reference Range Interpretation Comme nts SURGICAL RUN OUTREACH DATE: 09/05/22 [facility] Zac Hayden [facility] - LAB PAGE 1 RUN TIME: 1656 Specimen Inquiry RUN USER: (test INTERFACE code = SILVESTRE NICOLE) NT: LEIGHANN REDMOND LOC: ERI Heller #: [id number] AGE/SX: 62/F ROOM: RE08/31/22REG DR: Luigi Watkins MD : 62 BED: DIS: STATUS: PRE REF TLOC: SPEC #: [id number] RECD: STATUS: SILVIA REQ #: [id number] DELMY: 08/31/[address] [facility] [address]: Luigi Watkins MD ENTERED: 1 11/01/21 SP TYPE: SURGICAL OTHR DR: ORDERED: [id number], ANATOMIC SPEC, SPECIMEN TRACK PROCEDU RES: [id number] (09/05/22) SPECIMEN TRACK (09/01/22) TISSUES: A. BREAST BIOPSY, FEMALE LEFT - IRREGULAR INTRADUCTAL MASS FINAL DIAGNOSIS Breast, left, lesion at 6 o'clock, 2 cm from nipple, u ltrasound guided core biopsy:- Intraductal papilloma, partly sclerotic- Adjacent fibrocys tic changes Comment: Negative or atypia/malignancy. Suggest clinical correlation. GROSS DESCRIPTI ON Left breast 6:00 2 cm from nipple. It consists of 3 cores measuring 0.8-1.5 cm in ronaldo . They are submitted entirely as A1. Excised time: 10:26 a.m. 08/31/2022 Formalin time: 10: 29 a.m. Formalin fixation duration: >24 hours- <48 hours Technical tissue processing and slide preparation performed at [facility],[id number] , [place] [address] Unless gross only, the diagnosis is based upon m icroscopic examination.Immunohistochemistry: This test was developed and its performance characteristicsdetermined by this laboratory. It has not been approved nor does it need approval by the USFDA. Appropriate po sitive and negative controls are reviewed and judged to be acceptable.This laboratory i s certified under the Clinical Laboratory Improvement Amendments (CLIA-88)as qualified to per form high complexity clinical laboratory testing. MICROSCOPIC DESCRIPTION Microscopic exam ination is performed on all specimens and the findings areincorporated into the fin al diagnosis. Please see diagnosis for findings. CONTINUED ON NEXT PAGE RUN DATE: 09/05/22 [facility] PAGE 2 RUN TIME: 3907 Specimen Inquiry RUN USER: INTERFACE SPEC #: [id number] PATIENT: LEIGHANN REDMOND #[id number] (Continued) ------ Signed SIGNATURE ON MAHI Seamus Koenig 09/05/22 165 7 END OF REPORT COMP. METABOLIC PANEL ([id number])2022-07-11 21:15:31 Test Item Value Reference Range Interpretation Comments NA (test code = 139 mmol/L 135-145 7240186463) K (test code = 4.0 mmol/L 3.5-5 2928486629) CL (test code = 103 mmol/L 98-108 7344677307) CO2 TOTAL (test code 29 mmol/L 23-31 = 0300597715) AGAP (test code = 2-16 2252440739) BUN (test code = 16 mg/dL 7-23 3824547191) GLUCOSE (test code = 93 mg/dL 70-110 8757225599) CREATININE (test code 0.82 mg/dL 0.5-1.04 = 3561529509) TOTAL BILI (test code 0.7 mg/dL 0.1-1.1 = 4139381926) CALCIUM (test code = 9.8 mg/dL 8.6-10.6 4046820466) T PROTEIN (test code 7.3 g/dL 6.3-8.2 = 7430624841) ALBUMIN (test code = 4.4 g/dL 3.5-5 6388219372) ALK PHOS (test code = 69 U/L 34-122 9156454637) ALTv (test code = 28 U/L 5-35 1742-6) AST(SGOT) (test code 28 U/L 13-40 = 0806108817) eGFR (test code = mL/min/1.73m2 3218479018) VIDA (test code = VIDA) Association of Glomerular Filtration Rate (GFR) and Staging of Kidney Disease* + + +- +| GFR (mL/min/1.73 m2) ?| With Kidney Damage ?| ?Without Kidney Damage+ ------+ ----+ ------+| ?>90 ?| ?Stage one ?| ? Normal ?+ -+ + -+| ?60-89 ?| ?Stage two ?| ? Decreased GFR ? + + +- +| ?30-59 ?| ?Stage three ?| ? Stage three ? + + +- +| ?15-29 ?| ?Stage four ? | ? Stage four ?+ -+ + -+| ?<15 (or dialysis) ? ?| ?Stage five ? | ? Stage five ?+ -+ + -+ *Each stage assumes the associated GFR level has been in effect for at least three months. ?Stages 1 to 5, with or without kidney disease, indicate chronic kidney disease. Notes: Determination of stages one and two (with eGFR >59mL/min/1.73 m2) requires estimation of kidney damage for at least three months as defined by structural or functional abnormalities of the kidney, manifested by either:Pathological abnormalities or Markers of kidney damage (including abnormalities in the composition of the blood or urine or abnormalities in imaging tests). [facility] [id number] 21:03:50 Test Item Value Reference Interpretation Comments Range TROPONIN I (test 0.002 ng/mL See_Comment [Automated code = [id number]) message] The system which generated this result transmitted reference range : <=0.034. The reference range was not used to interpret this result as normal/abnormal . VIDA (test code = Reference (Normal) VIDA) Range (defined by the 99th percentile reference limit): <= 0.034 ng/mL Note: Cardiac troponin begins to rise 3-4 hours after the onset of ischemia. Repeat in 4-6 hours if the sample was drawn within 3-4 hours of the onset of the symptom and found normal. Diagnosis of myocardial injury is made with acute changes in cTn concentrations with at least one serial sample above the 99th percentile upper reference limit (URL), taken together with the patient's clinical presentation. Biotin has been reported to cause a negative bias, interpret results relative to patient's use of biotin. Lab Interpretation Normal (test code = 81095-2) [facility]MINAL [id number] 21:03:50 Test Item Value Reference Range Interpretation Comments NT-proBNP (test code 46 pg/mL See_Comment [Autom ated = [id number]) message] The system which generated this result transmitted reference range : <=125. The reference range was not used to interpret this result as normal/abnormal . VIDA (test code = VIDA) Biotin has been reported to cause a negative bias, interpret results relative to patient's use of biotin. Lab Interpretation Normal (test code = 93188-3) [facility] AmericaD-[id number] 20:42:31 Test Item Value Reference Interpretation Comments Range D-DIMER (test code = See_Comment [Autom ated [id number]) message] The system which generated this result transmitted reference range : <0.50 ?g/mL (FEU). The reference range was not used to interpret this result as normal/abnormal . VIDA (test code = This test may be VIDA) used in conjunction with a clinical pretest probability (PTP) assessment model to exclude venous thromboembolism (VTE) in patients suspected of deep venous thrombosis (DVT) and pulmonary embolism (PE) A D-Dimer value less than 0.50 ?g/ml (FEU) has a negative predicative value of 96 to 100% (95% CI)and 97 to 100% (95% CI) as an aid in the diagnosis of deep vein thrombosis (DVT) and pulmonary embolism when there is low or moderate pretest probability of PE or DVT. D-Dimer values are expressed in initial fibrinogen equivalent units (FEU)" The assay results should be used with other information, including the clinical context, in forming a diagnosis. Lab Interpretation Normal (test code = 73771-0) [facility] AmericaACTIVATED PARTIAL THRMPLAS [id number] 20:42:30 Test Item Value Reference Range Interpretation Comments APTT Patient (test code = See_Comment [ Automated message] 3173-2) The system [employer] generated this result transmitted ref erence range: 26 - 36 Seconds. The re ference range was not u sed to interpret this result as normal/abnor mal. Lab Interpretation (test Normal code = 18529-4) [facility] AmericaPROTHROMBIN TIME / [id number] 20:42:30 Test Item Value Reference Range Interpretation Comments PROTIME PATIENT (test See_Comment [Auto mated message] code = 5964-2) The system [employer] generated this result transmitted ref erence range: 10.1 - 1 2.6 Seconds. The re ference range was not u sed to interpret this result as normal/abnor mal. INR (test code = 6301-6) Nor mal INR <1.1; Warfarin Therap eutic range 2.0 to 3. 0 or 2.5 to 3.5, dep ending upon the indica tions. Lab Interpretation (test Normal code = 92625-4) [facility] AmericaCBC WITH [id number] 20:33:25 Test Item Value Reference Range Interpretation Comments WBC (test code = See_Comment [Automated 2191-2) message] The sy stem which generated this result transmitted reference range : 4.30 - 11.10 10*3/?L. The reference range was not used to interpret this result as normal/abnormal . RBC (test code = See_Comment H [Automated 779-8) message] The sy stem which generated this result transmitted reference range : 3.93 - 5.25 10*6/?L. The reference range was not used to interpret this result as normal/abnormal . HGB (test code = 15.1 g/dL 11.6-15 H 718-7) HCT (test code = 46.3 % 35.7-45.2 H 4544-3) MCV (test code = 84.3 fL 80.6-95.5 787-2) MCH (test code = 27.5 pg 25.9-32.8 785-6) MCHC (test code = 32.6 g/dL 31.6-35.1 786-4) RDW-SD (test code = 46.5 fL 39-49.9 29128-6) RDW-CV (test code = 15.2 % 12-15.5 788-0) PLT (test code = See_Comment [Automated 777-3) message] The sy stem which generated this result transmitted reference range : 166 - 358 10*3/ ?L. The reference r bharat was not used to interpret this result as normal/abnormal . MPV (test code = 9.6 fL 9.5-12.9 38441-9) NRBC/100 WBC (test See_Comment [Automat ed code = 2694821003) message] The system which generated this result transmitted reference range : 0.0 - 10.0 /100 WBCs. The refer ence range was not u sed to interpret th is result as normal/abnormal . NRBC x10^3 (test code See_Comment [Auto mated = 7431463703) message] The s ystem which generated this result transmitted reference range : 10*3/?L. The reference range was not used to interpret this result as normal/abnormal . GRAN MAT (NEUT) % 64.3 % (test code = 770-8) IMM GRAN % (test code 0.30 % = 0418973214) LYMPH % (test code = 19.9 % 736-9) MONO % (test code = 13.8 % 5905-5) EOS % (test code = 1.3 % 713-8) BASO % (test code = 0.4 % 706-2) GRAN MAT x10^3(ANC) 4.85 10*3/uL 1.88-7.09 (test code = 1568154915) IMM GRAN x10^3 (test 0-0.06 code = 8590089197) LYMPH x10^3 (test code 1.50 10*3/uL 1.32-3.29 = 731-0) MONO x10^3 (test code 1.04 10*3/uL 0.33-0.92 H = 742-7) EOS x10^3 (test code = 0.10 10*3/uL 0.03-0.39 711-2) BASO x10^3 (test code 0.03 10*3/uL 0.01-0.07 = 704-7) Lab Interpretation Abnormal (test code = 88014-3) [facility] HEAD AND [id number] 17:56:00 [facility] : 1960 Sex: F Name: LEIGHANN REDMOND [facility] : 1960 Age/S: 61 / F [id number] [facility] [place] Unit #: [id number] Loc: [place] [address] Phys: Luigi Watkins MD Acct: [id number] Dis Date: Status: REG CLI PHONE #: [phone] Exam Date: 12/29/2021 1609 FAX #: Reason: HYPOTHYROIDISM, THYROID NODULE EXAMS: CPT: [id number] US HEAD AND NECK 75266 CLINICAL INFORMATION: Hypothyroidism. Thyroid nodule.. Dictation location: J9 Comparison: No priors. Technique: Real-time study with duplex Doppler, color and spectral analysis. FINDINGS: The right lobe measured 2.8 x 0.8 x 0.8 centimeters. The left lobe measured 2.8 x 0.5 x 0.7 centimeters. The isthmus measured 0.7 centimeters. Thyroid echotexture was heterogeneous with 0.6 x 0.6 x 0.5 cm nodule at the right lower pole. This nodule showed peripheral vascularity.No calcific shadowing. TI-RADS Composition: Solid-2 points Echogenicity: Hypoechoic-2 points Shape:Rounded-0 points Margin: Ill-defined: 0 points Echogenic foci: None. Comet tail IMPRESSION: 1. BI-RADS 4 points. 2. TR 4. 3. Moderately suspicious although biopsy not recommended below 1.5 cm. 4. Follow-up if clinically suspicious. at 1756 Reported and signed by: Mateo Singh M.D. CC: Luigi Watkins MD Technologist: MARK Kelly Trnscb Date/Time: 12/29/2021 (1755) JohannAGV PAGE 1 Signed Report Name: LEIGHANN REDMOND [place] : 1960 Age/S: 61 / F [address] [address] [place] Unit #: [id number] Loc: [place] [address] Phys: Luigi Watkins MD Acct: [id number] Dis Date: Status: REG CLI PHONE #: [phone] Exam Date: 12/29/2021 1609 FAX #: Reason: HYPOTHYROIDISM, THYROID NODULE EXAMS: CPT: [id number] US HEAD AND NECK 56619 (Continued) Orig Print D/T: S: 12/29/2021 (1758) Probe: PAGE 2 Signed Report
[2023-08-22 17:11] LABS: Absolute Lymphocytes (CBC) 2.2 K/uL (0.7-4.9); Hematocrit 43.9 % (36.0-45.0); Lymphocytes % 18.5 % (15.3-44.8); MCV 83.7 fL (80-100); MPV 8.5 fL (7.6-11.3); Platelets 272 thou/uL (152-406); RBC Red Blood Cell Count 5.24 M/uL (3.86-4.86)
[2023-08-22 17:29] LABS: Albumin 3.4 g/dL (3.4-5.0); Bilirubin Total 0.7 mg/dL (0.2-1.0); Potassium 3.7 mEq/L (3.5-5.1); Protein, Total 7.1 g/dL (6.4-8.2)
[2023-08-22] MEDS ORDERED: NA CHLORIDE 0.9% 1,000 ML ONE (18:20)
[2023-08-22] MEDS ORDERED: FENTANYL CITR 100 MCG/2 ML ONE (18:20)
--- NOTE | 2023-08-22 18:51 | RAD REPORT ---
EXAM DESCRIPTION: CT - Abdomen Pelvis W Contrast - 08/22/2023 6:16 pm CLINICAL HISTORY: ABD PAIN COMPARISON: No comparisons TECHNIQUE: Thin cut axial CT imaging of the abdomen and pelvis was performed following intravenous a dministration of 95 mL Isovue 300. Multiplanar reformats were generated and reviewed. All CT scans are performed using dose optimization technique as appropriate and may include automated exposure control or mA/KV adjustment according to patient size. FINDINGS: No suspicious findings in the lung bases. The liver, spleen, and pancreas show no suspicious findings. Gallbladder and biliary tree are also wi thout suspicious finding. Symmetric renal function is seen with no hydronephrosis or suspicious renal mass. 3.5 cm right lower pole renal cyst and other sub centimeter cortical hypoattenuating foci suggestive of cysts but too sm all to characterize. Incidentally noted duodenal diverticulum. No dilated bowel loops. Short segment of wall thickening in volving the mid sigmoid colon, with adjacent fat stranding. Trace fluid tracks along the right pelvic sidewall. No appreciable fluid collections or extraluminal air. No free air, or free fluid. No herni a, mass or bulky lymphadenopathy. The urinary bladder is without significant finding. No suspicious bony findings. IMPRESSION: Sequelae of acute sigmoid diverticulitis. No evidence of complications. Incidental findings as above. The findings were communicated to Leah Mcclain on 08/22/2023 at 18:46 hours.
--- NOTE | 2023-08-22 19:02 | EDPHYS ---
Physician Documentation [facility] Name: Angelica Valiente Age: 63 yrs Sex: Female : 1960 Arrival Date: 08/22/2023 Time: 16:12 Bed 17 Private MD: ED Physician Luis Felipe Traore HPI: 08/22 17:30 This 63 yrs old Female presents to ER via Ambulatory with complaints of APPENDECITIS. snw 17:30 Onset: The symptoms/episode began/occurred acutely, 5 day(s) ago, and became worse. snw Modifying factors: The patient symptoms are alleviated by nothing, the patient symptoms are aggravated by movement. The patient has not experienced similar symptoms in the past. The patient has been recently seen by a physician: the patient's primary care provider, with similar presenting complaints, and was sent to the [facility] Emergency Department for further evaluation. Historical: - Allergies: 16:50 Codeine; hb 16:50 citrus fruits; hb - Home Meds: 16:50 levothyroxine oral [Active]; hb - PMHx: 16:50 PE; hb - PSHx: 16:50 Hysterectomy; hb - Immunization history:: Adult Immunizations up to date. - Social history:: Smoking status: Patient denies any tobacco usage or history of. ROS: 17:31 Constitutional: Negative for fever, chills, and weight loss, Eyes: Negative for injury, snw pain, redness, and discharge, ENT: Negative for injury, pain, and discharge, Neck: Negative for injury, pain, and swelling, Cardiovascular: Negative for chest pain, palpitations, and edema, Respiratory: Negative for shortness of breath, cough, wheezing, and pleuritic chest pain, Back: Negative for injury and pain, : Negative for injury, bleeding, discharge, and swelling, MS/Extremity: Negative for injury and deformity, Skin: Negative for injury, rash, and discoloration, Neuro: Negative for headache, weakness, numbness, tingling, and seizure, Psych: Negative for depression, anxiety, suicide ideation, homicidal ideation, and hallucinations, 17:31 Abdomen/GI: Positive for abdominal pain, Negative for nausea and vomiting, Exam: 17:30 Constitutional: This is a well developed, well nourished patient who is awake, alert, snw and in no acute distress. Head/Face: Normocephalic, atraumatic. Eyes: Pupils equal round and reactive to light, extra-ocular motions intact. Lids and lashes normal. Conjunctiva and sclera are non-icteric and not injected. Cornea within normal limits. Periorbital areas with no swelling, redness, or edema. ENT: Nares patent. No nasal discharge, no septal abnormalities noted. Tympanic membranes are normal and external auditory canals are clear. Oropharynx with no redness, swelling, or masses, exudates, or evidence of obstruction, uvula midline. Mucous membranes moist. Neck: Trachea midline, no thyromegaly or masses palpated, and no cervical lymphadenopathy. Supple, full range of motion without nuchal rigidity, or vertebral point tenderness. No Meningismus. Chest/axilla: Normal chest wall appearance and motion. Nontender with no deformity. No lesions are appreciated. Cardiovascular: Regular rate and rhythm with a normal S1 and S2. No gallops, murmurs, or rubs. Normal PMI, no JVD. No pulse deficits. Respiratory: Lungs have equal breath sounds bilaterally, clear to auscultation and percussion. No rales, rhonchi or wheezes noted. No increased work of breathing, no retractions or nasal flaring. Back: No spinal tenderness. No costovertebral tenderness. Full range of motion. Skin: Warm, dry with normal turgor. Normal color with no rashes, no lesions, and no evidence of cellulitis. MS/ Extremity: Pulses equal, no cyanosis. Neurovascular intact. Full, normal range of motion. Neuro: Awake and alert, GCS 15, oriented to person, place, time, and situation. Cranial nerves II-XII grossly intact. Motor strength 5/5 in all extremities. Sensory grossly intact. Cerebellar exam normal. Normal gait. Psych: Awake, alert, with orientation to person, place and time. Behavior, mood, and affect are within normal limits. 17:30 Abdomen/GI: Inspection: abdomen appears normal, Bowel sounds: normal, Palpation: moderate abdominal tenderness, severe abdominal tenderness, in the right lower quadrant, Vital Signs: 16:48 BP 149 / 80; Pulse 71; Resp 16; Temp 98.6; Pulse Ox 100% on R/A; Weight 77.56 kg; hb Height 5 ft. 7 in. ; Pain 8/10; 17:38 BP 146 / 81; Pulse 63; Resp 18; Pulse Ox 97% on R/A; mb9 18:36 BP 151 / 80; Pulse 68; Resp 16; Pulse Ox 100% on R/A; Pain 4/10; mb9 19:33 BP 148 / 77; Pulse 68; Resp 15; Pulse Ox 99% ; nw1 16:48 Body Mass Index 26.78 (77.56 kg, 170.18 cm) hb 16:48 Pain Scale: Adult hb 18:36 Pain Scale: Adult mb9 MDM: 17:04 Patient medically screened. snw 17:31 Differential diagnosis: bacterial infection, gastroenteritis, appendicitis, snw ureterolithiasis. Data reviewed: vital signs, nurses notes, lab test result(s), radiologic studies. Management of patient was discussed with the following: Hris Analyst: Dr. Raygoza was consulted per PCP.. 19:00 Counseling: I had a detailed discussion with the patient and/or guardian regarding the snw historical points, exam findings, and any diagnostic results supporting the discharge/admit diagnosis, lab results, radiology results, to return to the emergency department if symptoms worsen or persist or if there are any questions or concerns that arise at home. Response to treatment: the patient's symptoms have mildly improved after treatment. Refusal of service: The patient/guardian displays adequate decision making capability and despite a detailed discussion of alternatives, benefits, risks, and consequences refuses: Admission to the hospital for further work-up and treatment. ED course: Pt would like to go home on oral abx instead of admission. Return precautions discussed and pt voices understanding. 08/22 16:35 Order name: CBC with Diff; Complete Time: 17:22 snw 08/22 16:35 Order name: CMP; Complete Time: 17:32 snw 08/22 16:35 Order name: Lipase; Complete Time: 17:32 snw 08/22 16:35 Order name: CT Abd/Pelvis - IV Contrast Only; Complete Time: 18:57 snw 08/22 16:35 Order name: IV Saline Lock; Complete Time: 17:03 snw 08/22 16:35 Order name: Labs collected and sent; Complete Time: 17:03 snw 08/22 17:32 Order name: NPO; Complete Time: 17:39 snw Administered Medications: 19:34 Discontinued: ns 0.9% 1000 ml IV at 125 ml/hr continuous nw1 18:09 Not Given (Patient Refused): fentanyl (pf)25 mcg IVP once mb9 18:09 Drug: NS 0.9% IV 1000 ml IV at 125 ml/hr continuous Route: IV; Rate: 125 ml/hr; Site: mb9 left antecubital; Disposition Summary: 08/22/23 19:02 Discharge Ordered Notes: Location: Home snw Condition: Stable snw Diagnosis - Diverticulitis of large intestine without perforation or abscess without bleeding snw Followup: snw - With: Emergency Department - When: As needed - Reason: Worsening of condition Followup: snw - With: Private Physician - When: 1 week - Reason: Recheck today's complaints, Continuance of care, Re-evaluation by your physician Discharge Instructions: - Discharge Summary Sheet snw - Diverticulitis snw - Dizziness snw - Rehydration, Adult snw Forms: - Medication Reconciliation Form snw - Thank You Letter snw - Antibiotic Education snw - Prescription Opioid Use snw - Patient Portal Instructions snw - Leadership Thank You Letter snw Prescriptions: - Flagyl 500 mg Oral Tablet - take 1 tablet ORAL route every 8 hours for 10 days; 30 tablet; Refills: 0, snw Product Selection Permitted - Cipro 500 mg Oral Tablet - take 1 tablet ORAL route every 12 hours for 7 days; 14 tablet; Refills: 0, snw Product Selection Permitted - dicyclomine 20 mg Oral tablet - take 1 tablet ORAL route 3 times per day As needed; 21 tablet; Refills: 0, snw Product Selection Permitted Addendum: 08/25/2023 06:59 Co-signature as Attending Physician, Luis Felipe Traore MD I reviewed the patient's care r n provided by the Advanced Practice Provider and agree with the diagnosis and treatment plan. Signatures: Dispatcher [employer] Leah Duarte, YOLI-C DIGITAL CAM[employer] TECHNICIAN-Csnw Luis Felipe Traore MD MD rn Baxter, Heather, RN RN hb Breneman, Mary Beth, RN RN mb9
--- NOTE | 2023-08-22 19:02 | ER ---
Nurse's Notes [facility] Name: Angelica Valiente Age: 63 yrs Sex: Female : 1960 Arrival Date: 08/22/2023 Time: 16:12 Bed 17 Private MD: Diagnosis: Diverticulitis of large intestine without perforation or abscess without bleeding Presentation: 08/22 16:48 Chief complaint: Sent by Dr. Watkins to r/o appendicitis. Pt reports worsening RLQ pain x hb 5 days. Coronavirus screen: At this time, the client does not indicate any symptoms associated with coronavirus-19. Ebola Screen: No symptoms or risks identified at this time. Initial Sepsis Screen: Does the patient meet any 2 criteria? No. Patient's initial sepsis screen is negative. Does the patient have a suspected source of infection? No. Patient's initial sepsis screen is negative. Risk Assessment: Do you want to hurt yourself or someone else? Patient reports no desire to harm self or others. Onset of symptoms was August 18, 2023. 16:48 Method Of Arrival: Ambulatory hb 16:48 Acuity: RAND 3 hb Historical: - Allergies: 16:50 Codeine; hb 16:50 citrus fruits; hb - Home Meds: 16:50 levothyroxine oral [Active]; hb - PMHx: 16:50 PE; hb - PSHx: 16:50 Hysterectomy; hb - Immunization history:: Adult Immunizations up to date. - Social history:: Smoking status: Patient denies any tobacco usage or history of. Screenin:39 [facility] ED Fall Risk Assessment (Adult) History of falling in the last 3 months, mb9 including since admission No falls in past 3 months (0 pts) Confusion or Disorientation No (0 pts) Intoxicated or Sedated No (0 pts) Impaired Gait No (0 pts) Mobility Assist Device Used No (0 pt) Altered Elimination No (0 pt) Score/Fall Risk Level 0 - 2 = Low Risk Oriented to surroundings, Maintained a safe environment, Educated pt \T\ family on fall prevention, incl call for assistance when getting out of bed. Abuse screen: Denies threats or abuse. Nutritional screening: No deficits noted. Tuberculosis screening: No symptoms or risk factors identified. Assessment: 17:24 General: Appears uncomfortable, Behavior is calm, cooperative. Pain: Complains of pain mb9 in abdomen Pain does not radiate. Pain currently is 7 out of 10 on a pain scale. Quality of pain is described as sharp, Pain began 2-3 days ago. Is continuous. Neuro: Lainez Agitation-Sedation Scale (RASS): 0 - Alert and Calm Level of Consciousness is awake, alert, obeys commands, Oriented to person, place, time, situation, Appropriate for age. Cardiovascular: Patient's skin is warm and dry. Cardiovascular: Heart tones S1 S2 present. Respiratory: Airway is patent Respiratory effort is even, unlabored, Respiratory pattern is regular, symmetrical. GI: Abdomen is round non-distended, Bowel sounds present X 4 quads. Abd is soft Abdomen is tender to palpation in right lower quadrant. GI: Reports lower abdominal pain, Patient currently denies diarrhea, nausea, vomiting. : No signs and/or symptoms were reported regarding the genitourinary system. EENT: No signs and/or symptoms were reported regarding the EENT system. Derm: Skin is pink, warm \T\ dry. Musculoskeletal: Range of motion: intact in all extremities. 18:11 Reassessment: pt taken to CT via wheelchair. mb9 18:35 Reassessment: No changes from previously documented assessment. Patient and/or family mb9 updated on plan of care and expected duration. Pain level reassessed. Patient is alert, oriented x 3, equal unlabored respirations, skin warm/dry/pink. Vital Signs: 16:48 BP 149 / 80; Pulse 71; Resp 16; Temp 98.6; Pulse Ox 100% on R/A; Weight 77.56 kg; hb Height 5 ft. 7 in. ; Pain 8/10; 17:38 BP 146 / 81; Pulse 63; Resp 18; Pulse Ox 97% on R/A; mb9 18:36 BP 151 / 80; Pulse 68; Resp 16; Pulse Ox 100% on R/A; Pain 4/10; mb9 19:33 BP 148 / 77; Pulse 68; Resp 15; Pulse Ox 99% ; nw1 16:48 Body Mass Index 26.78 (77.56 kg, 170.18 cm) hb 16:48 Pain Scale: Adult hb 18:36 Pain Scale: Adult mb9 ED Course: 16:15 Patient arrived in ED. kj1 16:18 Leah Mcclain FNP-C is PHCP. snw 16:18 Luis Felipe Traore MD is Attending Physician. snw 16:50 Triage completed. hb 16:51 Arm band placed on. hb 17:03 Inserted saline lock: 22 gauge in left antecubital area, using aseptic technique. Blood ds4 collected. 17:38 Blanca Ramey, RN is Primary Nurse. mb9 17:39 Placed in gown. Bed in low position. Call light in reach. Side rails up X 1. Client mb9 placed on continuous cardiac and pulse oximetry monitoring. NIBP monitoring applied. 17:39 No provider procedures requiring assistance completed. mb9 18:17 CT Abd/Pelvis - IV Contrast Only In Process Unspecified. EDMS 19:33 IV discontinued, intact, bleeding controlled, No redness/swelling at site. Pressure nw1 dressing applied. 19:34 Provided Education on: POC. nw1 Administered Medications: 19:34 Discontinued: ns 0.9% 1000 ml IV at 125 ml/hr continuous nw1 18:09 Not Given (Patient Refused): fentanyl (pf)25 mcg IVP once mb9 18:09 Drug: NS 0.9% IV 1000 ml IV at 125 ml/hr continuous Route: IV; Rate: 125 ml/hr; Site: mb9 left antecubital; Medication: 17:39 VIS not applicable for this client. mb9 Outcome: 19:02 Discharge ordered by . snw 19:33 Discharged to home ambulatory, nw1 19:33 Condition: good 19:33 Discharge instructions given to patient, Instructed on discharge instructions, follow up and referral plans. no drinking with medication, medication usage, Demonstrated understanding of instructions, follow-up care, medications, Prescriptions given X 3, 19:35 Patient left the ED. nw1 Signatures: Dispatcher [employer] EDMS Leah Mcclain FNP-C RESIDENTIAL BUILDER-Csnw Hector Alcala ds4 Nichelle Mota, RN RN Leonor Girard kj1 Blanca Ramey, SANJUANA WEI mb9 Radha Nielson RN RN nw1
[2023-08-22 19:58] VITALS: TEMP 98.6
[2023-08-22 20:03] VITALS: BP 148/77; O2SAT 99
== END 2023-08-22 19:35 | disposition home or self-care (01) ==
LOC: ER 16:12
DX: K57.32 Diverticulitis of large intestine without perforation or abscess without bleeding (principal); Z88.5 Allergy status to narcotic agent; Z91.018 Allergy to other foods
CPT/HCPCS: 85025; 36415; 83690; 80053; 74177; 99284; Q9967; J3010; J7030